=== PATIENT | male | born 2000 | race Caucasian/White ===

== ENCOUNTER 2019-06-19 16:52 | Emergency (ER) | payer SELFPAY ==
[~2019-06-19] VITALS: Ht 167.6 cm; Wt 77.1 kg
--- NOTE | 2019-06-19 17:28 | ED Abdominal Pain ---
General Chief Complaint: Abdominal/GI Problems Stated Complaint: ABD PAIN Source of Information: Patient Exam Limitations: No Limitations History of Present Illness Date Seen by Provider: Jun 19, 2019 Time Seen by Provider: 17:27 Initial Comments To ER with left upper abdominal pain. He noticed a nodule 2 weeks ago and that seems to have grown in size since then. He has some intermittent nausea but no vomiting. No bowel changes. Reports a subjective fever last nightm pain is worsened by movement or deep breathing. Timing/Duration: 1-2 Days Severity/Quality: Moderate Location: [facility] Radiation: No Radiation Activities at Onset: None Associated Symptoms: Denies Symptoms Allergies and Home Medications Allergies Coded Allergies: No Known Drug Allergies (Unverified , 06/19/19) Home Medications No Active Prescriptions or Reported Meds Patient Home Medication List Home Medication List Reviewed: Yes Review of Systems Review of Systems Constitutional: see HPI EENTM: No Symptoms Reported Respiratory: No Symptoms Reported Cardiovascular: No Symptoms Reported Gastrointestinal: See HPI, Abdominal Pain Genitourinary: No Symptoms Reported Musculoskeletal: no symptoms reported Skin: no symptoms reported Psychiatric/Neurological: No Symptoms Reported Endocrine: No Symptoms Reported Hematologic/Lymphatic: No Symptoms Reported Past Koouubc-Gohdqk-Gwhnoz Hx Patient Social History Alcohol Use: Denies Use Recreational Drug Use: No Smoking Status: Never a Smoker Recent Foreign Travel: No Contact w/Someone Who Travel: No Physical Abuse: No Sexual Abuse: No Mistreated: No Fear: No Seasonal Allergies Seasonal Allergies: No Past Medical History Surgeries: No Respiratory: No Cardiac: No Neurological: No Genitourinary: No Gastrointestinal: No Musculoskeletal: No Endocrine: No HEENT: No Cancer: No Psychosocial: No Integumentary: No Blood Disorders: No Adverse Reaction/Blood Tranf: No Physical Exam Vital Signs Vital Signs - First Documented 06/19/19 17:13 Temp 97.8 Pulse 85 Resp 16 B/P (MAP) 140/108 (119) Pulse Ox 100 Capillary Refill : Height/Weight/BMI Height: '" Weight: lbs. oz. kg; BMI Method: General Appearance: WD/WN, no apparent distress HEENT: PERRL/EOMI, normal ENT inspection Neck: non-tender, full range of motion Respiratory: no respiratory distress, no accessory muscle use Gastrointestinal: normal bowel sounds, soft, other (I am unable to palpate any nodule other than the lower rib border) Extremities: normal range of motion, non-tender Neurologic/Psychiatric: alert, normal mood/affect, oriented x 3 Skin: normal color, warm/dry Progress/Results/Core Measures Results/Orders Lab Results Laboratory Tests Test 06/19/19 17:20 Range/Units White Blood Count 12.2 H 4.3-11.0 10^3/uL Red Blood Count 5.78 4.35-5.85 10^6/uL Hemoglobin 17.1 13.3-17.7 G/DL Hematocrit 51 40-54 % Mean Corpuscular Volume 89 80-99 FL Mean Corpuscular Hemoglobin 30 25-34 PG Mean Corpuscular Hemoglobin Concent 33 32-36 G/DL Red Cell Distribution Width 13.1 10.0-14.5 % Platelet Count 215 130-400 10^3/uL Mean Platelet Volume 11.1 H 7.4-10.4 FL Neutrophils (%) (Auto) 53 42-75 % Lymphocytes (%) (Auto) 33 12-44 % Monocytes (%) (Auto) 10 0-12 % Eosinophils (%) (Auto) 4 0-10 % Basophils (%) (Auto) 0 0-10 % Neutrophils # (Auto) 6.4 1.8-7.8 X 10^3 Lymphocytes # (Auto) 4.1 H 1.0-4.0 X 10^3 Monocytes # (Auto) 1.3 H 0.0-1.0 X 10^3 Eosinophils # (Auto) 0.4 H 0.0-0.3 10^3/uL Basophils # (Auto) 0.1 0.0-0.1 10^3/uL Sodium Level 140 135-145 MMOL/L Potassium Level 3.9 3.6-5.0 MMOL/L Chloride Level 104 98-107 MMOL/L Carbon Dioxide Level 26 21-32 MMOL/L Anion Gap 10 5-14 MMOL/L Blood Urea Nitrogen 11 7-18 MG/DL Creatinine 1.00 0.60-1.30 MG/DL Estimat Glomerular Filtration Rate > 60 BUN/Creatinine Ratio 11 Glucose Level 89 70-105 MG/DL Calcium Level 9.5 8.5-10.1 MG/DL Corrected Calcium 8.5-10.1 MG/DL Total Bilirubin 0.7 0.1-1.0 MG/DL Aspartate Amino Transf (AST/SGOT) 120 H 5-34 U/L Alanine Aminotransferase (ALT/SGPT) 502 H 0-55 U/L Alkaline Phosphatase 159 H 40-136 U/L Total Protein 8.4 H 6.4-8.2 GM/DL Albumin 4.9 H 3.2-4.5 GM/DL Lipase 17 8-78 U/L Monoscreen NEGATIVE NEGATIVE My Orders Orders - LAMONTE JHAVERI GARNETT MECH[employer]IC Cbc With Automated Diff (06/19/19 17:24) Lipase (06/19/19 17:24) Monotest (06/19/19 17:24) Comprehensive Metabolic Panel (06/19/19 17:24) Ua Culture If Indicated (06/19/19 17:24) Ct Chest/Abdomen W (06/19/19 17:24) Fentanyl Injection (Sublimaze Injection (06/19/19 17:30) Ketorolac Injection (Toradol Injection) (06/19/19 17:30) Ed Iv/Invasive Line Start (06/19/19 17:24) Iohexol Injection (Omnipaque 350 Mg/Ml 1 (06/19/19 17:30) Received Contrast (Hold Metformin- Contr (06/19/19 17:30) Ns (Ivpb) (Sodium Chloride 0.9% Ivpb Bag (06/19/19 17:30) Medications Given in ED Current Medications Medications Dose Ordered Sig/Lauryn Route Start Time Stop Time Status Last Admin Dose Admin Fentanyl Citrate 50 mcg ONCE ONCE IVP 06/19/19 17:30 06/19/19 17:31 DC 06/19/19 18:04 50 MCG Ketorolac Tromethamine 15 mg ONCE ONCE IVP 06/19/19 17:30 06/19/19 17:31 DC 06/19/19 18:04 15 MG Vital Signs/I&O 06/19/19 17:13 Temp 97.8 Pulse 85 Resp 16 B/P (MAP) 140/108 (119) Pulse Ox 100 Departure Impression Primary Impression: Costochondral chest pain Disposition: 01 HOME, SELF-CARE Condition: Stable Departure-Patient Inst. Decision time for Depature: 18:15 Referrals: [facility] (PCP/Family) Primary Care Physician Patient Instructions: Costochondritis Add. Discharge Instructions: All discharge instructions reviewed with patient and/or family. Voiced understanding. Scripts Hydrocodone/Acetaminophen ([place] 5-325 Tablet) 1 Each Tablet 1 TAB PO Q4-6HR for Pain MDD 10 TABS for 7 Days, #10 TAB Prov: LAMONTE JHAEVRI APRN 06/19/19 Prednisone (Prednisone) 20 Mg Tab 40 MG PO DAILY, #6 TAB 0 Refills Prov: LAMONTE JHAVERI APRN 06/19/19 Images Torso/Trunk 1 - Other-See Progress Note LAMONTE JHAVERI APRN Jun 19, 2019 17:28
[2019-06-19] MEDS ORDERED: HOLD METFORMIN - RECEIVED CONTRAST 20 ML VIAL IV SCH (17:30)
[2019-06-19] MEDS ORDERED: IOHEXOL 350 MG/ML 100 ML (OMNIPAQUE 350) VIAL IV ONE (17:30)
[2019-06-19] MEDS ORDERED: fentaNYL INJECTION 100 MCG/2 ML AMP IVP ONE (17:30)
[2019-06-19] MEDS ORDERED: KETOROLAC 30 MG/ML VIAL IVP ONE (17:30)
[2019-06-19] MEDS ORDERED: NS 100 ML (IVPB) BAG IV ONE (17:30)
[2019-06-19 17:31] LABS: BASOPHILS # (AUTO) 0.1 10^3/uL (0.0-0.1); BASOPHILS % (AUTO) 0 % (0-10); EOSINOPHILS # (AUTO) 0.4 10^3/uL (0.0-0.3); EOSINOPHILS % (AUTO) 4 % (0-10); HEMATOCRIT 51 % (40-54); HEMOGLOBIN 17.1 G/DL (13.3-17.7); LYMPHOCYTES # (AUTO) 4.1 X 10^3 (1.0-4.0); LYMPHOCYTES % (AUTO) 33 % (12-44); MEAN CORPUSCULAR HEMOGLOBIN 30 PG (25-34); MEAN CORPUSCULAR HGB CONC 33 G/DL (32-36); MEAN CORPUSCULAR VOLUME 89 FL (80-99); MEAN PLATELET VOLUME 11.1 FL (7.4-10.4); MONOCYTES # (AUTO) 1.3 X 10^3 (0.0-1.0); MONOCYTES % (AUTO) 10 % (0-12); NEUTROPHILS # (AUTO) 6.4 X 10^3 (1.8-7.8); NEUTROPHILS % (AUTO) 53 % (42-75); PLATELET COUNT 215 10^3/uL (130-400); RED CELL DISTRIBUTION WIDTH 13.1 % (10.0-14.5); WHITE BLOOD COUNT 12.2 10^3/uL (4.3-11.0)
[2019-06-19 17:48] LABS: ALANINE AMINOTRANSFERASE 502 U/L (0-55); ALBUMIN 4.9 GM/DL (3.2-4.5); ALKALINE PHOSPHATASE 159 U/L (40-136); BILIRUBIN,TOTAL 0.7 MG/DL (0.1-1.0); BUN/CREATININE RATIO 11; CALCIUM 9.5 MG/DL (8.5-10.1); CARBON DIOXIDE 26 MMOL/L (21-32); CHLORIDE 104 MMOL/L (98-107); GFR ESTIMATED > 60; GLUCOSE 89 MG/DL (70-105); LIPASE 17 U/L (8-78); POTASSIUM 3.9 MMOL/L (3.6-5.0); SODIUM 140 MMOL/L (135-145); TOTAL PROTEIN 8.4 GM/DL (6.4-8.2)
--- NOTE | 2019-06-19 18:11 | Diagnostic Imaging Report ---
PROCEDURE: CT chest and abdomen with contrast. TECHNIQUE: Multiple contiguous axial images were obtained through the chest and abdomen after the administration of intravenous contrast. Auto Exposure Controls were utilized during the CT exam to meet ALARA standards for radiation dose reduction. INDICATION: Left lower rib cage pain. Left upper abdominal pain. Swelling. Nausea. COMPARISON: None. FINDINGS: CT chest: Cardiomediastinal structures show normal heart size. There is no large pericardial effusion. No pathologically enlarged or morphologically abnormal adenopathy is seen within the mediastinum, camille or axilla. Lung windows show no focal consolidation, large effusion or pneumothorax. No suspicious pulmonary nodules or masses are identified. Osseous structures show no acute abnormality. CT abdomen: Included small bowel loops are nondistended. Appendix is not occluded on this exam. Kidneys, adrenal glands, spleen, pancreas and liver have a normal CT appearance. There is no loculated fluid collection, free fluid or free air within the abdomen. No abnormal mesenteric or retroperitoneal adenopathy is seen. Osseous structures show no acute abnormality. IMPRESSION: No acute abnormality is seen within the chest or abdomen. Dictated by: Dictated on workstation # [id number]
[2019-06-19 18:20] VITALS: BP 132/92
[2019-06-19] MEDS ORDERED: HYDR-4226 PO (18:27)
[2019-06-19] MEDS ORDERED: PRD20T PO (18:27)
== END 2019-06-19 18:20 | disposition home or self-care (01) ==
LOC: ER 16:55
DX: R07.1 Chest pain on breathing (principal)
CPT/HCPCS: 36415; 71260; 74160; 80053; 83690; 85025; 86308